=== PATIENT | male | born 1945 | race Caucasian/White ===

== ENCOUNTER 2016-06-26 09:44 | Emergency (ER) | payer MEDICARE, OTHER ==
[~2016-06-26 09:44] MED LIST: ALLOPURINOL100 MG PO; ATARAX25 MG PO; AUGMENTIN 875-1 EACH PO; COMPAZINE10 MG PO; DEXAMETHASONE1 MG PO; MIACALCIN3.7 ML; PERCOCET 5/3251 TAB PO; PREDNISONE 20MG20 MG PO; PROTONIX 40MG T40 MG PO; SYNTHROID25 MCG PO
[2016-06-26 10:26] LABS: BASOPHIL 0.8 % (0-2); EOSINOPHIL 0.6 % (0-7); HCT 21.4 % (42.0-52.0); LYMPHOCYTE 12.8 % (15-48); MCH 30.6 pg (25.0-31.0); MCHC 33.2 g/dL (32.0-36.0); MCV 92.2 fL (78.0-100.0); MPV 10.8 fL (6.0-9.5); NEUTROPHIL 66.8 % (41-80); PLT 335 K/uL (150-400); RBC 2.32 M/uL (4.70-6.00); RDW 19.6 % (11.5-14.0); WBC 14.3 K/uL (4.0-10.5)
[2016-06-26 10:31] LABS: HGB 7.1 g/dl (13.2-18.0)
[2016-06-26 10:46] LABS: ALBUMIN 2.3 g/dL (3.4-4.8); BILIRUBIN - TOTAL 0.3 mg/dL (0.1-1.0); CREATININE 1.6 mg/dL (0.7-1.2); GLOBULIN (CALCULATION) 1.3 g/dL (2.2-4.2); TOTAL PROTEIN 3.6 g/dL (6.4-8.3)
[2016-06-26 10:47] LABS: TROPONIN T < 0.010 ng/mL
[2016-06-26 10:48] LABS: PRO-BNP 3007 pg/mL (0-125)
[2016-06-26 14:40] LABS: EOSINOPHIL 0.3 % (0-7); HCT 21.1 % (42.0-52.0); LYMPHOCYTE 12.6 % (15-48); MCH 30.3 pg (25.0-31.0); MCHC 33.2 g/dL (32.0-36.0); MCV 91.3 fL (78.0-100.0); MONOCYTE 17.1 % (0-12); MPV 10.9 fL (6.0-9.5); PLT 273 K/uL (150-400); RBC 2.31 M/uL (4.70-6.00); RDW 19.4 % (11.5-14.0); WBC 13.5 K/uL (4.0-10.5)
== END 2016-06-26 19:00 | disposition other institution (70) ==
LOC: FER 09:44
PROVIDERS: Emergency Medicine
DX: R42 Dizziness and giddiness (principal); R06.02 Shortness of breath; C85.90 Non-Hodgkin lymphoma, unspecified, unspecified site; R10.84 Generalized abdominal pain; K64.9 Unspecified hemorrhoids; R00.0 Tachycardia, unspecified; Z79.899 Other long term (current) drug therapy; Z87.19 Personal history of other diseases of the digestive system
CPT/HCPCS: 36415; 36430; 36600; 71010; 80053; 82803; 83880; 84484; 85025; 85379; 86850; 86900; 86901; 86922; 93005; 94640; 96360; P9016

== ENCOUNTER 2021-03-25 16:49 | Emergency (ER) | payer MEDICARE, OTHER ==
[2021-03-25 18:01] LABS: BASOPHIL 0.4 % (0-2); EOSINOPHIL 0.2 % (0-7); HCT 45.7 % (42.0-52.0); HGB 15.2 g/dl (13.2-18.0); LYMPHOCYTE 10.5 % (15-48); MCH 31.8 pg (25.0-31.0); MCHC 33.3 g/dL (32.0-36.0); MCV 95.6 fL (78.0-100.0); MONOCYTE 9.5 % (0-12); MPV 11.2 fL (6.0-9.5); NEUTROPHIL 79.1 % (41-80); NRBC 0; PLT 215 K/uL (150-400); RBC 4.78 M/uL (4.70-6.00); RDW 13.7 % (11.5-14.0)
[2021-03-25 18:08] LABS: ALBUMIN 3.8 g/dL (3.4-5.0); BILIRUBIN - TOTAL 0.5 mg/dL (0.2-1.0); BUN/CREAT RATIO (CALC) 13.3 RATIO; CREATININE 1.58 mg/dL (0.67-1.17); GLOBULIN (CALCULATION) 3.3 g/dL; TOTAL PROTEIN 7.1 g/dL (6.4-8.2)
[2021-03-25 18:09] LABS: LACTIC ACID 1.2 mmol/L (0.4-1.9)
[2021-03-25 19:34] LABS: BILIRUBIN NEGATIVE (NEGATIVE); BLOOD 1+ Ery/uL (NEGATIVE); CLARITY CLEAR (CLEAR); COLOR YELLOW (YELLOW); GLUCOSE (U) NORMAL (NORMAL); LEUKOCYTES NEGATIVE Leu/uL (NEGATIVE); NITRITE NEGATIVE (NEGATIVE); PROTEIN NEGATIVE (NEGATIVE); UROBILINOGEN 0.2 mg/dL (0.2-1.0)
[2021-03-25 19:44] LABS: BACTERIA TRACE; SQUAMOUS EPITHELIAL CELLS RARE; URINARY WBC RARE
[2021-03-25] MEDS ORDERED: COMPAZINE10 MG PO (20:41)
== END 2021-03-25 21:13 | disposition home or self-care (01) ==
LOC: FER 16:49
PROVIDERS: Emergency Medicine
DX: N18.30 Chronic kidney disease, stage 3 unspecified (principal); Z79.899 Other long term (current) drug therapy
CPT/HCPCS: 36415; 80053; 81001; 83605; 83690; 85025; J0780; J2270